=== PATIENT | male | born 1930 | race Caucasian/White ===

== ENCOUNTER 2019-01-10 04:17 | Inpatient (IN) | payer MEDICARE, OTHER ==
--- NOTE | 2019-01-10 04:42 | EDM.PDOC ---
ED HPI GENERAL MEDICAL PROBLEM - General Chief Complaint: Cardiovascular Problem Stated Complaint: A-FIB Time Seen by Provider: 01/10/19 04:41 Source of Information: Reports: Patient History Limitations: Reports: No Limitations - History of Present Illness INITIAL COMMENTS - FREE TEXT/NARRATIVE: pt woke up with a rapid heartbeat and thought he was probably back in atrial fib. He does have a history of atrial fib and is on elequist. Onset: Today, Sudden Duration: Hour(s): Location: Reports: Chest Associated Symptoms: Reports: No Other Symptoms - Related Data Allergies Allergy/AdvReac Type Severity Reaction Status Date / Time zolpidem [From Ambien] Allergy Hallucinati Verified 01/10/19 04:30 ons Home Meds: Home Meds Amiodarone HCl 100 mg PO DAILY 01/10/19 [History] Apixaban [Eliquis] 5 mg PO BID 01/10/19 [History] Calcium Carb/Mag Ox/Zinc Gluc [Sethboh-Nrnmvsutb-Rtsq] 1 each PO DAILY 01/10/19 [History] Docusate Sodium [Colace] 100 mg PO DAILY 01/10/19 [History] Dorzolamide HCl/Pf [Dorzolamide 2% Eye Drop] 1 drop EYEBOTH DAILY 01/10/19 [ History] Glucosam/Chond/Collagen/Hyalur [Glucosamine Chondroitin] 1 each PO DAILY [History] Latanoprost/Pf [Latanoprost 0.005% Eye Drop] 1 drop EYEBOTH DAILY 01/10/19 [ History] Multi-Enzyme 1 tab PO DAILY 01/10/19 [History] Multivitamin [Multi-Day Vitamins] 1 each PO DAILY 01/10/19 [History] [place]-3/DHA/Epa/Fish Oil [Murray-3 Fish Oil 1,000 MG Sfgl] 1 tab PO DAILY [History] Polyethylene Glycol 3350 [MiraLAX] 17 gm PO DAILY 01/10/19 [History] Pravastatin Sodium [Pravachol] 20 mg PO BEDTIME 01/10/19 [History] Tamsulosin HCl [Flomax] 0.4 mg PO DAILY 01/10/19 [History] Ubidecarenone [Coenzyme Q-10] 200 mg PO DAILY 01/10/19 [History] Verapamil HCl [Calan Sr] 180 mg PO DAILY 01/10/19 [History] Past Medical History HEENT History: Reports: Cataract, Glaucoma Cardiovascular History: Reports: Afib, Aneurysm, CAD, [place], Other (See Below) Other Cardiovascular History: 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 Respiratory History: Reports: Asthma Genitourinary History: Reports: BPH Musculoskeletal History: Reports: Arthritis, Fracture Other Musculoskeletal History: foot Psychiatric History: Reports: PTSD - Infectious Disease History Infectious Disease History: Reports: Chicken Pox, Mumps - Past Surgical History HEENT Surgical History: Reports: Cataract Surgery Cardiovascular Surgical History: Reports: Coronary Artery Bypass Other Cardiovascular Surgeries/Procedures: x 4 ED ROS GENERAL - Review of Systems Review Of Systems: See Below Constitutional: Reports: No Symptoms, Other (pt felt like his heart was pounding. ) HEENT: Reports: No Symptoms Respiratory: Reports: No Symptoms Cardiovascular: Reports: Palpitations, Other (p feels like his heart has slowed some since the racing started. ) Endocrine: Reports: No Symptoms GI/Abdominal: Reports: No Symptoms : Reports: No Symptoms Musculoskeletal: Reports: No Symptoms Skin: Reports: No Symptoms ED EXAM, GENERAL - Physical Exam Exam: See Below Free Text/Narrative:: pt is a very alert pt who feels like his heart is racing. He has a long history of atrial fib, He is elequist . He did not have chest pain or sob at the onset of the problem. Exam Limited By: No Limitations General Appearance: Alert, No Apparent Distress Ears: Normal TMs Nose: Normal Inspection Throat/Mouth: Normal Inspection Head: Atraumatic Neck: Normal Inspection Respiratory/Chest: No Respiratory Distress Cardiovascular: Regular Rate, Rhythm, Tachycardia, Systolic Murmur, Other (pt has a grade 2 systolic murmur. ) GI/Abdominal: Soft, Non-Tender (Male) Exam: Deferred Rectal (Males) Exam: Deferred Back Exam: Normal Inspection Extremities: Normal Inspection Neurological: Alert, Oriented Psychiatric: Normal Affect Course - Vital Signs Last Recorded V/S: Last Vital Signs Temp 36.3 C 01/10/19 04:24 Pulse 116 H 01/10/19 05:50 Resp 18 01/10/19 05:50 BP 173/110 H 01/10/19 05:50 Pulse Ox 94 L 01/10/19 05:50 - Orders/Labs/Meds Orders: Active Orders 24 hr Category Date Time Status EKG Documentation Completion [RC] ASDIRECTED Care 01/10/19 04:39 Active Diltiazem 125 mg Med 01/10/19 06:00 Active Sodium Chloride 0.9% [Normal Saline] 100 ml IV TITRATE Sodium Chloride 0.9% [Saline Flush] Med 01/10/19 05:09 Active 10 ml FLUSH ASDIRECTED PRN Saline Lock Insert [OM.PC] Routine Oth 01/10/19 05:09 Ordered EKG 12 Lead [EK] Routine Ther 01/10/19 04:39 Ordered Medication Orders Diltiazem HCl 125 mg/ Sodium (Chloride) 125 mls @ 5 mls/hr IV TITRATE SHARON; Protocol Sodium Chloride (Saline Flush) 10 ml FLUSH ASDIRECTED PRN PRN Reason: Keep Vein Open Last Admin: 01/10/19 05:32 Dose: 10 ml Labs: Laboratory Tests 01/10/19 01/10/19 01/10/19 Range/Units 04:45 04:45 04:45 WBC 5.5 (4.5-11.0) K/uL RBC 4.93 (4.30-5.90) M/uL Hgb 14.9 (12.0-15.0) g/dL Hct 45.1 (40.0-54.0) % MCV 92 (80-98) fL MCH 30 (27-31) pg MCHC 33 (32-36) % Plt Count 146 L (150-400) K/uL Neut % (Auto) 65 (36-66) % Lymph % (Auto) 23 L (24-44) % Greer % (Auto) 9 H (2-6) % Eos % (Auto) 3 (2-4) % Baso % (Auto) 0 (0-1) % Sodium 140 (140-148) mmol/L Potassium 3.8 (3.6-5.2) mmol/L Chloride 105 (100-108) mmol/L Carbon Dioxide 24 (21-32) mmol/L Anion Gap 11.0 (5.0-14.0) mmol/L BUN 24 H (7-18) mg/dL Creatinine 1.1 (0.8-1.3) mg/dL Est Cr Clr Drug Dosing 48.20 mL/min Estimated GFR (MDRD) > 60 (>60) Glucose 129 H (74-106) mg/dL Calcium 9.0 (8.5-10.1) mg/dL Magnesium 1.9 (1.8-2.4) mg/dL Total Bilirubin 0.3 (0.2-1.0) mg/dL AST 18 (15-37) U/L ALT 27 (12-78) U/L Alkaline Phosphatase 116 (46-116) U/L Troponin I (0.000-0.056) ng/mL Total Protein 7.3 (6.4-8.2) g/dL Albumin 3.3 L (3.4-5.0) g/dL Globulin 4.0 H (2.3-3.5) g/dL Albumin/Globulin Ratio 0.8 L (1.2-2.2) 01/10/19 Range/Units 04:45 WBC (4.5-11.0) K/uL RBC (4.30-5.90) M/uL Hgb (12.0-15.0) g/dL Hct (40.0-54.0) % MCV (80-98) fL MCH (27-31) pg MCHC (32-36) % Plt Count (150-400) K/uL Neut % (Auto) (36-66) % Lymph % (Auto) (24-44) % Greer % (Auto) (2-6) % Eos % (Auto) (2-4) % Baso % (Auto) (0-1) % Sodium (140-148) mmol/L Potassium (3.6-5.2) mmol/L Chloride (100-108) mmol/L Carbon Dioxide (21-32) mmol/L Anion Gap (5.0-14.0) mmol/L BUN (7-18) mg/dL Creatinine (0.8-1.3) mg/dL Est Cr Clr Drug Dosing mL/min Estimated GFR (MDRD) (>60) Glucose (74-106) mg/dL Calcium (8.5-10.1) mg/dL Magnesium (1.8-2.4) mg/dL Total Bilirubin (0.2-1.0) mg/dL AST (15-37) U/L ALT (12-78) U/L Alkaline Phosphatase (46-116) U/L Troponin I < 0.017 (0.000-0.056) ng/mL Total Protein (6.4-8.2) g/dL Albumin (3.4-5.0) g/dL Globulin (2.3-3.5) g/dL Albumin/Globulin Ratio (1.2-2.2) Meds: Medications Generic Name Dose Route Start Last Admin Trade Name Freq PRN Reason Stop Dose Admin Diltiazem HCl 125 mg/ Sodium 125 mls @ 5 mls/hr 01/10/19 06:00 Chloride IV TITRATE SHARON Protocol 5 MG/HR Sodium Chloride 10 ml 01/10/19 05:09 01/10/19 05:32 Saline Flush FLUSH 10 ml ASDIRECTED PRN Administration Keep Vein Open Discontinued Medications Generic Name Dose Route Start Last Admin Trade Name Freq PRN Reason Stop Dose Admin Adenosine 6 mg 01/10/19 05:36 01/10/19 05:43 Adenocard IVPUSH 01/10/19 05:37 6 mg NOW ONE Administration Diltiazem HCl 10 mg 01/10/19 05:48 Diltiazem IVPUSH 01/10/19 05:49 ONETIME ONE - Re-Assessments/Exams Free Text/Narrative Re-Assessment/Exam: 01/10/19 06:01 pt was given adenogard 6 mg and his heart slowed markedly. He appears to be in atrial flutter at that time. He was started on cardizem bolus and drip. He will be admitted to be followed. 01/10/19 06:19 [facility] was notified of his need for admission and felt he should be admitted locally. He is very stable at this point. He remains at a rate of 116. Departure - Departure Time of Disposition: 06:20 Disposition: Admitted As Inpatient 68 Condition: Fair Clinical Impression: Atrial flutter, History of atrial fibrillation, Valvular heart disease Referrals: PCP,None [Primary Care Provider] - Forms: ED Department Discharge Care Plan Goals: admit to Dr Khan. - My Orders Last 24 Hours: My Active Orders 01/10/19 04:39 EKG Documentation Completion [RC] ASDIRECTED EKG 12 Lead [EK] Routine 01/10/19 05:09 Sodium Chloride 0.9% [Saline Flush] 10 ml FLUSH ASDIRECTED PRN Saline Lock Insert [OM.PC] Routine 01/10/19 06:00 Diltiazem 125 mg Sodium Chloride 0.9% [Normal Saline] 100 ml IV TITRATE - Assessment/Plan Last 24 Hours: My Active Orders 01/10/19 04:39 EKG Documentation Completion [RC] ASDIRECTED EKG 12 Lead [EK] Routine 01/10/19 05:09 Sodium Chloride 0.9% [Saline Flush] 10 ml FLUSH ASDIRECTED PRN Saline Lock Insert [OM.PC] Routine 01/10/19 06:00 Diltiazem 125 mg Sodium Chloride 0.9% [Normal Saline] 100 ml IV TITRATE
[2019-01-10] MEDS ORDERED: Sodium Chloride 0.9% 10 ML Syringe FLUSH PRN (05:09)
[2019-01-10] MEDS ORDERED: Adenosine 6 MG/2 ML SDV IVPUSH ONE (05:36)
[2019-01-10] MEDS ORDERED: Diltiazem 25 MG/5 ML SDV IVPUSH ONE (05:48)
[2019-01-10] MEDS ORDERED: Acetaminophen 325 MG Tab PO PRN (06:35)
[2019-01-10] MEDS ORDERED: Promethazine 25 MG Tab PO PRN (06:35)
--- NOTE | 2019-01-10 06:35 | PCM.HP.2 ---
H&P History of Present Illness - General Date of Service: 01/10/19 Source of Information: Patient, Family History Limitations: Reports: No Limitations - History of Present Illness Initial Comments - Free Text/Narative: Patient is a 88 yo male who is here because he awoke this morning with a rapid heart rate. He says he used to have a dose of a beta trung to take if this happened but it was lost when he recently moved. He says he has no chest pain, SOB, NVD, swelling of legs, feet or hands, changes to vision, hearing, or any other adverse symptoms. He says he has A-fib and is on amiodarone for this, and used to be regularly on a beta trung but it was stopped 18 months ago d/t bradycardia. Onset of Symptoms: Reports: Today, Sudden Symptom Onset Date: 01/10/19 Symptom Onset Time: 04:00 Duration of Symptoms: Reports: Hour(s):, Improving Location: Reports: Chest Associated Symptoms: Reports: No Other Symptoms. Denies: Confusion, Chest Pain , Cough, Nausea/Vomiting, Shortness of Breath, Syncope, Weakness - Related Data Allergies/Adverse Reactions: Allergies Allergy/AdvReac Type Severity Reaction Status Date / Time zolpidem [From Ambien] Allergy Hallucinati Verified 01/10/19 04:30 ons Home Medications: Home Meds Amiodarone HCl 100 mg PO DAILY 01/10/19 [History] Apixaban [Eliquis] 5 mg PO BID 01/10/19 [History] Calcium Carb/Mag Ox/Zinc Gluc [Poabeti-Jxduygvtb-Znnw] 1 each PO DAILY 01/10/19 [History] Docusate Sodium [Colace] 100 mg PO DAILY 01/10/19 [History] Dorzolamide HCl/Pf [Dorzolamide 2% Eye Drop] 1 drop EYEBOTH DAILY 01/10/19 [ History] Glucosam/Chond/Collagen/Hyalur [Glucosamine Chondroitin] 1 each PO DAILY [History] Latanoprost/Pf [Latanoprost 0.005% Eye Drop] 1 drop EYEBOTH DAILY 01/10/19 [ History] Multi-Enzyme 1 tab PO DAILY 01/10/19 [History] Multivitamin [Multi-Day Vitamins] 1 each PO DAILY 01/10/19 [History] [place]-3/DHA/Epa/Fish Oil [[place]-3 Fish Oil 1,000 MG Sfgl] 1 tab PO DAILY [History] Polyethylene Glycol 3350 [MiraLAX] 17 gm PO DAILY 01/10/19 [History] Pravastatin Sodium [Pravachol] 20 mg PO BEDTIME 01/10/19 [History] Tamsulosin HCl [Flomax] 0.4 mg PO DAILY 01/10/19 [History] Ubidecarenone [Coenzyme Q-10] 200 mg PO DAILY 01/10/19 [History] Verapamil HCl [Calan Sr] 180 mg PO DAILY 01/10/19 [History] Past Medical History HEENT History: Reports: Cataract, Glaucoma Cardiovascular History: Reports: Afib, Aneurysm, CAD, [place], Other (See Below) Other Cardiovascular History: 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 Respiratory History: Reports: Asthma Genitourinary History: Reports: BPH Musculoskeletal History: Reports: Arthritis, Fracture Other Musculoskeletal History: foot Psychiatric History: Reports: PTSD - Infectious Disease History Infectious Disease History: Reports: Chicken Pox, Mumps - Past Surgical History HEENT Surgical History: Reports: Cataract Surgery Cardiovascular Surgical History: Reports: Coronary Artery Bypass Other Cardiovascular Surgeries/Procedures: x 4 Social & Family History - Family History Family Medical History: Unobtainable - Tobacco Use Smoking Status *Q: Never Smoker - Caffeine Use Caffeine Use: Reports: Coffee Caffeine Use Comment: jessica - Recreational Drug Use Recreational Drug Use: No H&P Review of Systems - Review of Systems: Review Of Systems: See Below General: Reports: No Symptoms. Denies: Fever, Chills, Weakness, Fatigue, Weight Loss HEENT: Reports: No Symptoms. Denies: Headaches Pulmonary: Reports: No Symptoms. Denies: Shortness of Breath, Wheezing Cardiovascular: Reports: Palpitations, Blood Pressure Problem Gastrointestinal: Reports: No Symptoms. Denies: Abdominal Pain, Diarrhea, Decreased Appetite, Nausea, Vomiting Genitourinary: Reports: No Symptoms. Denies: Frequency Musculoskeletal: Reports: No Symptoms. Denies: Back Pain, Joint Pain, Muscle Pain Skin: Reports: No Symptoms. Denies: Cyanosis, Pallor, Bruising Psychiatric: Reports: No Symptoms. Denies: Confusion, Depression Neurological: Reports: No Symptoms. Denies: Confusion, Dizziness, Headache, Numbness, Tingling Hematologic/Lymphatic: Reports: No Symptoms. Denies: Anemia, Easy Bleeding, Easy Bruising Immunologic: Reports: No Symptoms Exam - Exam Exam: See Below - Vital Signs Vital Signs: Last Vital Signs Temp 36.3 C 01/10/19 04:24 Pulse 116 H 01/10/19 05:50 Resp 18 01/10/19 05:50 BP 173/110 H 01/10/19 05:50 Pulse Ox 94 L 01/10/19 05:50 Weight: 77.4 kg - Exam General: Alert, Oriented, Cooperative HEENT: PERRLA, Conjunctiva Clear, EOMI Neck: Supple, Trachea Midline Lungs: Clear to Auscultation, Normal Respiratory Effort. No: Decreased Breath Sounds, Wheezing Cardiovascular: Regular Rhythm, Normal S1, Normal S2, Tachycardia GI/Abdominal Exam: Normal Bowel Sounds, Soft, Non-Tender, No Organomegaly, No Distention, No Mass (Male) Exam: Deferred Rectal (Males) Exam: Deferred Back Exam: Normal Inspection, Full Range of Motion. No: CVA Tenderness (R), CVA Tenderness (L) Extremities: Normal Range of Motion, Non-Tender, Normal Capillary Refill, Pedal Edema Skin: Warm, Dry, Intact Neurological: Cranial Nerves Intact, Reflexes Equal Bilateral Neuro Extensive - Mental Status: Alert, Oriented x3, Normal Mood/Affect, Normal Cognition, Memory Intact Neuro Extensive - Motor, Sensory, Reflexes: CN II-XII Intact, Normal Gait, Normal Reflexes Psychiatric: Alert, Normal Affect, Normal Mood - Patient Data Lab Results Last 24 hrs: Laboratory Results - last 24 hr 01/10/19 01/10/19 01/10/19 Range/Units 04:45 04:45 04:45 WBC 5.5 (4.5-11.0) K/uL RBC 4.93 (4.30-5.90) M/uL Hgb 14.9 (12.0-15.0) g/dL Hct 45.1 (40.0-54.0) % MCV 92 (80-98) fL MCH 30 (27-31) pg MCHC 33 (32-36) % Plt Count 146 L (150-400) K/uL Neut % (Auto) 65 (36-66) % Lymph % (Auto) 23 L (24-44) % Irwin % (Auto) 9 H (2-6) % Eos % (Auto) 3 (2-4) % Baso % (Auto) 0 (0-1) % Sodium 140 (140-148) mmol/L Potassium 3.8 (3.6-5.2) mmol/L Chloride 105 (100-108) mmol/L Carbon Dioxide 24 (21-32) mmol/L Anion Gap 11.0 (5.0-14.0) mmol/L BUN 24 H (7-18) mg/dL Creatinine 1.1 (0.8-1.3) mg/dL Est Cr Clr Drug Dosing 48.20 mL/min Estimated GFR (MDRD) > 60 (>60) Glucose 129 H (74-106) mg/dL Calcium 9.0 (8.5-10.1) mg/dL Magnesium 1.9 (1.8-2.4) mg/dL Total Bilirubin 0.3 (0.2-1.0) mg/dL AST 18 (15-37) U/L ALT 27 (12-78) U/L Alkaline Phosphatase 116 (46-116) U/L Troponin I (0.000-0.056) ng/mL Total Protein 7.3 (6.4-8.2) g/dL Albumin 3.3 L (3.4-5.0) g/dL Globulin 4.0 H (2.3-3.5) g/dL Albumin/Globulin Ratio 0.8 L (1.2-2.2) 01/10/19 Range/Units 04:45 WBC (4.5-11.0) K/uL RBC (4.30-5.90) M/uL Hgb (12.0-15.0) g/dL Hct (40.0-54.0) % MCV (80-98) fL MCH (27-31) pg MCHC (32-36) % Plt Count (150-400) K/uL Neut % (Auto) (36-66) % Lymph % (Auto) (24-44) % Irwin % (Auto) (2-6) % Eos % (Auto) (2-4) % Baso % (Auto) (0-1) % Sodium (140-148) mmol/L Potassium (3.6-5.2) mmol/L Chloride (100-108) mmol/L Carbon Dioxide (21-32) mmol/L Anion Gap (5.0-14.0) mmol/L BUN (7-18) mg/dL Creatinine (0.8-1.3) mg/dL Est Cr Clr Drug Dosing mL/min Estimated GFR (MDRD) (>60) Glucose (74-106) mg/dL Calcium (8.5-10.1) mg/dL Magnesium (1.8-2.4) mg/dL Total Bilirubin (0.2-1.0) mg/dL AST (15-37) U/L ALT (12-78) U/L Alkaline Phosphatase (46-116) U/L Troponin I < 0.017 (0.000-0.056) ng/mL Total Protein (6.4-8.2) g/dL Albumin (3.4-5.0) g/dL Globulin (2.3-3.5) g/dL Albumin/Globulin Ratio (1.2-2.2) Result Diagrams: 01/10/19 04:45 01/10/19 04:45 - Problem List (1) Atrial flutter SNOMED Code(s): 0825495 ICD Code: I48.92 - UNSPECIFIED ATRIAL FLUTTER Status: Acute Priority: High Current Visit: Yes Onset Date: ~01/10/19 Problem Details: Will continue cardizem drip until patient converts, this may require additional medications to convert patient Qualifiers: Atrial flutter type: typical Qualified Code(s): I48.3 - Typical atrial flutter (2) Hypertension SNOMED Code(s): 08712150 ICD Code: I10 - ESSENTIAL (PRIMARY) HYPERTENSION Status: Acute Priority: High Current Visit: Yes Onset Date: ~01/10/19 Problem Details: Patient does not have history of HTN, but vitals in ER show 170/106, blood pressure will likely resolve with treatment for Afib Qualifiers: Hypertension type: unspecified secondary hypertension Qualified Code(s): I15.9 - Secondary hypertension, unspecified; I15 - Secondary hypertension (3) BPH (benign prostatic hyperplasia) SNOMED Code(s): 788677298 ICD Code: N40.0 - BENIGN PROSTATIC HYPERPLASIA WITHOUT LOWER URINRY TRACT SYMP Status: Acute Priority: Low Current Visit: Yes Onset Date: Unknown Problem Details: tamsulosin Qualifiers: Lower urinary tract symptom presence: symptoms absent Qualified Code(s): N40.0 - Benign prostatic hyperplasia without lower urinary tract symptoms Problem List Initiated/Reviewed/Updated: Yes Orders Last 24hrs: Resuscitation Status 01/10/19 06:35 Resuscitation Status Routine Resuscitation Status: Full Code Abbreviations used in this policy: *Cardiopulmonary Resuscitation (CPR) *Do Not Resuscitate (DNR) *Do Not Intubate (DNI) Code status categories recognized at [facility] 1. Full Code a. If a patient experiences cardiac or respiratory arrest, all resuscitation efforts (including CPR, defibrillation, and airway management) will be performed. b. Patients without a specific code status order other than Full Code will be assumed to be Full Code Status. Intubation CPR Defibrillation YES YES YES 2. DNR a. If there are changes in the patients' vital signs and condition, including respiratory arrest, treatment with medications and intubation, if indicated will be performed. b. If a patient experiences cardiac arrest, resuscitation efforts (CPR and Defibrillation) will not be performed. Intubation CPR Defibrillation YES NO NO 3. DNR/DNI a. If there are changes in the patient's vital signs and condition, including respiratory arrest, treatment with medications and noninvasive airway management/positive pressure ventilation, if indicated will be performed b. If a patient experiences a cardiac arrest, resuscitation efforts ( including CPR, defibrillation and intubation) will not be performed. Intubation CPR Defibrillation NO NO NO 4. DNR/DNI/Comfort Measures a. All medical and nursing interventions will be for the sole purpose of providing pain/symptom management for the patient. b. If a patient experiences a cardiac or respiratory arrest, resuscitation efforts (including CPR, defibrillation and intubation) will not be performed. Intubation CPR Defibrillation No NO NO ACTIVE MED ORDERS Generic Name Dose Route Start Last Admin Trade Name Freq PRN Reason Stop Dose Admin Acetaminophen 650 mg 01/10/19 06:35 Tylenol PO Q4H PRN Pain (Mild 1-3)/fever Diltiazem HCl 125 mg/ Sodium 125 mls @ 5 mls/hr 01/10/19 06:00 01/10/19 06:45 Chloride IV 5 mg/hr TITRATE SHARON 5 mls/hr Administration Protocol 5 MG/HR Promethazine HCl 25 mg 01/10/19 06:35 Phenergan PO Q6H PRN Nausea able to take PO Sodium Chloride 10 ml 01/10/19 05:09 01/10/19 05:32 Saline Flush FLUSH 10 ml ASDIRECTED PRN Administration Keep Vein Open ACTIVE NON-MED ORDERS/Care 01/10/19 04:39 EKG Documentation Completion [RC] ASDIRECTED 01/10/19 06:52 Oxygen Therapy [RC] PRN Maintain SpO2% greater than: 92 Oxygen Therapy Mode, Primary: Nasal Cannula Oxygen Flow Rate (L/min): 2 Oxygen Therapy Mode, Secondary: Nasal Cannula Flow Rate (L/min), Secondary: 4 VTE/DVT Education [RC] Per Unit Routine Vital Signs [RC] Q4H 01/10/19 06:53 Cardiac Monitoring [RC] .As Directed ACTIVE NON-MED ORDERS/Orderable Interventions Cardiac Monitoring/Telemetry Start: 01/10/19 06: 53 Text: Status: Active Freq: .As Directed Protocol: EKG Documentation of Completion Start: 01/10/19 04: 39 Freq: ASDIRECTED Status: Active Protocol: Document 01/10/19 05:07 LP (Rec: 01/10/19 05:08 LP [email or web address]) Education: VTE/DVT Topics Start: 01/10/19 06: 52 Freq: Per Unit Routine Status: Active Protocol: Oxygen Therapy Start: 01/10/19 06: 52 Freq: PRN Status: Active Protocol: Vital Signs Start: 01/10/19 06: 52 Text: Click to edit a change in frequency and times. Status: Active Freq: Q4H Protocol: VS.TEMP ACTIVE NON-MED ORDERS/LAB 01/11/19 06:35 CBC W/O DIFF,HEMOGRAM [HEME] Routine Comment: Specimen: Send someone from the department to collect COMPREHENSIVE METABOLIC PN,CMP [CHEM] Routine Comment: Specimen: Send someone from the department to collect ACTIVE ORDERS/MEDS 01/10/19 05:09 Sodium Chloride 0.9% [Saline Flush] 10 ml FLUSH ASDIRECTED PRN 01/10/19 06:00 Diltiazem 125 mg Sodium Chloride 0.9% [Normal Saline] 100 ml IV TITRATE 01/10/19 06:35 Acetaminophen [Tylenol] 650 mg PO Q4H PRN Promethazine [Phenergan] 25 mg PO Q6H PRN ACTIVE NON-MED ORDERS/Therapies 01/10/19 04:39 EKG 12 Lead [EK] Routine Is Patient : Reason For Exam: near syncope ACTIVE NON-MED ORDERS/Transfer 01/10/19 06:55 Patient Status Manage Transfer [TRANSFER] Routine Patient Status: Admit to Inpatient Admission Diagnosis/Problem: Atrial flutter with rapid ventricular response Reason for Admit: a-flutter with RVR, on drip Nurse Unit Type: Critical Care Adult Admitting Physician: Trudy Khan Attending Physician: Sarthak Lambert Medicare 96 Hour Certification Statement: This Patient is Admitted for Inpatient Services and is Medically Appropriate and Meets Medical Necessity for Inpatient Admission. I Reasonably Expect the Patient will Require Inpatient Services that Span a Period of Over 2 Midnights. My Rationale for Medically Necessary Inpatient Care will be Found in the Admission History & Physical and Progress Notes. I Reasonably Expect the Patient to be Discharged or Transferred within 96 Hours After Admission to this Critical Access Hospital. Provider Acknowledgement/Certification: Trudy Khan ACTIVE NON-MED ORDERS/Other 01/10/19 05:09 Saline Lock Insert [OM.PC] Routine Comment: 01/10/19 06:35 Anticoagulation Contraindications VTE [AST] Per Unit Routine Physician Instructions: patient on eliquis VTE Anticoagulation Contraindications: Med/TX Not Indicated/Need 01/10/19 06:52 Patient Status [ADT] Routine Patient Status: Admit to Inpatient Admission Diagnosis/Problem: Atrial flutter with rapid ventricular response Reason for Admit: a-flutter with RVR and drip Nurse Unit Type: Critical Care Adult Admitting Physician: Trudy Khan Attending Physician: Sarthak Lambert Medicare 96 Hour Certification Statement: This Patient is Admitted for Inpatient Services and is Medically Appropriate and Meets Medical Necessity for Inpatient Admission. I Reasonably Expect the Patient will Require Inpatient Services that Span a Period of Over 2 Midnights. My Rationale for Medically Necessary Inpatient Care will be Found in the Admission History & Physical and Progress Notes. I Reasonably Expect the Patient to be Discharged or Transferred within 96 Hours After Admission to this Critical Access Hospital. Provider Acknowledgement/Certification: Trudy Khan 01/10/19 06:53 Sequential Compression Device [OM.PC] Per Unit Routine Comment: - Mortality Measure Prognosis:: Good
[2019-01-10] MEDS: Diltiazem 125 MG in Sodium Chloride 0.9% 100 ML IV SCH ×2 (06:45→15:28)
[2019-01-10] MEDS ORDERED: Apixaban 5 MG Tab PO SCH (09:02)
--- NOTE | 2019-01-10 10:51 | PCM.PN ---
- General Info Date of Service: 01/10/19 Subjective Update: Mr. Thomson is an 88-year-old gentleman who was admitted early this morning through the emergency department with atrial flutter and rapid ventricular response. He does have a previous history of A. fib flutter, with previous hospitalization about a year and a half ago. He has been treated with amiodarone for rhythm control and verapamil for rate control. He also has been on long-term oral anticoagulation with Eliquis. Dose of amiodarone was decreased from 200 mg a day to 100 mg a day 2-3 months ago. He awoke early this morning with rapid heart rate and when it did not improve spontaneously he presented to the emergency department for further evaluation. He has been treated with IV diltiazem, rate remains elevated in the range of 120 bpm. Functional Status: Reports: Tolerating Diet, Urinating - Review of Systems General: Reports: Weakness. Denies: Fever, Chills Pulmonary: Reports: No Symptoms Cardiovascular: Reports: Palpitations. Denies: Chest Pain, Dyspnea on Exertion , Orthopnea, PND, Edema, Lightheadedness Gastrointestinal: Reports: No Symptoms Genitourinary: Reports: No Symptoms - Patient Data Vitals - Most Recent: Last Vital Signs Temp 97.3 F 01/10/19 04:24 Pulse 123 H 01/10/19 08:46 Resp 14 01/10/19 08:46 BP 130/78 01/10/19 08:46 Pulse Ox 96 01/10/19 08:46 Weight - Most Recent: 163 lb 14.4 oz I&O - Last 24 Hours: Intake & Output 01/09/19 01/10/19 01/10/19 22:59 06:59 14:59 Output Total 350 Balance -350 Lab Results Last 24 Hours: Laboratory Results - last 24 hr 01/10/19 01/10/19 01/10/19 Range/Units 04:45 04:45 04:45 WBC 5.5 (4.5-11.0) K/uL RBC 4.93 (4.30-5.90) M/uL Hgb 14.9 (12.0-15.0) g/dL Hct 45.1 (40.0-54.0) % MCV 92 (80-98) fL MCH 30 (27-31) pg MCHC 33 (32-36) % Plt Count 146 L (150-400) K/uL Neut % (Auto) 65 (36-66) % Lymph % (Auto) 23 L (24-44) % [place] % (Auto) 9 H (2-6) % Eos % (Auto) 3 (2-4) % Baso % (Auto) 0 (0-1) % Sodium 140 (140-148) mmol/L Potassium 3.8 (3.6-5.2) mmol/L Chloride 105 (100-108) mmol/L Carbon Dioxide 24 (21-32) mmol/L Anion Gap 11.0 (5.0-14.0) mmol/L BUN 24 H (7-18) mg/dL Creatinine 1.1 (0.8-1.3) mg/dL Est Cr Clr Drug Dosing 48.20 mL/min Estimated GFR (MDRD) > 60 (>60) Glucose 129 H (74-106) mg/dL Calcium 9.0 (8.5-10.1) mg/dL Magnesium 1.9 (1.8-2.4) mg/dL Total Bilirubin 0.3 (0.2-1.0) mg/dL AST 18 (15-37) U/L ALT 27 (12-78) U/L Alkaline Phosphatase 116 (46-116) U/L Troponin I (0.000-0.056) ng/mL Total Protein 7.3 (6.4-8.2) g/dL Albumin 3.3 L (3.4-5.0) g/dL Globulin 4.0 H (2.3-3.5) g/dL Albumin/Globulin Ratio 0.8 L (1.2-2.2) 01/10/19 Range/Units 04:45 WBC (4.5-11.0) K/uL RBC (4.30-5.90) M/uL Hgb (12.0-15.0) g/dL Hct (40.0-54.0) % MCV (80-98) fL MCH (27-31) pg MCHC (32-36) % Plt Count (150-400) K/uL Neut % (Auto) (36-66) % Lymph % (Auto) (24-44) % [place] % (Auto) (2-6) % Eos % (Auto) (2-4) % Baso % (Auto) (0-1) % Sodium (140-148) mmol/L Potassium (3.6-5.2) mmol/L Chloride (100-108) mmol/L Carbon Dioxide (21-32) mmol/L Anion Gap (5.0-14.0) mmol/L BUN (7-18) mg/dL Creatinine (0.8-1.3) mg/dL Est Cr Clr Drug Dosing mL/min Estimated GFR (MDRD) (>60) Glucose (74-106) mg/dL Calcium (8.5-10.1) mg/dL Magnesium (1.8-2.4) mg/dL Total Bilirubin (0.2-1.0) mg/dL AST (15-37) U/L ALT (12-78) U/L Alkaline Phosphatase (46-116) U/L Troponin I < 0.017 (0.000-0.056) ng/mL Total Protein (6.4-8.2) g/dL Albumin (3.4-5.0) g/dL Globulin (2.3-3.5) g/dL Albumin/Globulin Ratio (1.2-2.2) Med Orders - Current: Current Medications Acetaminophen (Tylenol) 650 mg PO Q4H PRN PRN Reason: Pain (Mild 1-3)/fever Apixaban (Eliquis) 5 mg PO DAILY SHARON Diltiazem HCl 125 mg/ Sodium (Chloride) 125 mls @ 5 mls/hr IV TITRATE SHARON; Protocol Last Titration: 01/10/19 09:06 Dose: 15 mg/hr, 15 mls/hr Promethazine HCl (Phenergan) 25 mg PO Q6H PRN PRN Reason: Nausea able to take PO Sodium Chloride (Saline Flush) 10 ml FLUSH ASDIRECTED PRN PRN Reason: Keep Vein Open Last Admin: 01/10/19 05:32 Dose: 10 ml Tamsulosin HCl (Flomax) 0.4 mg PO BEDTIME SHARON Discontinued Medications Adenosine (Adenocard) 6 mg IVPUSH NOW ONE Stop: 01/10/19 05:37 Last Admin: 01/10/19 05:43 Dose: 6 mg Diltiazem HCl (Diltiazem) 10 mg IVPUSH ONETIME ONE Stop: 01/10/19 05:49 Last Admin: 01/10/19 06:39 Dose: 10 mg - Exam Quality Assessment: DVT Prophylaxis General: Alert, Oriented, Cooperative, Mild Distress Lungs: Clear to Auscultation, Normal Respiratory Effort Cardiovascular: Regular Rhythm, No Murmurs, Tachycardia GI/Abdominal Exam: Soft, Non-Tender, No Organomegaly, No Distention Extremities: Non-Tender, No Pedal Edema - Problem List Review Problem List Initiated/Reviewed/Updated: Yes - My Orders Last 24 Hours: My Active Orders 01/10/19 10:45 Amiodarone HCl [Amiodarone HCl] 400 mg PO DAILY Apixaban [Eliquis] 5 mg PO BID 01/10/19 11:00 Docusate Sodium [Colace] 100 mg PO DAILY Dorzolamide HCl/Pf [Dorzolamide 2% Eye Drop] 1 drop EYEBOTH DAILY Latanoprost/Pf [Latanoprost 0.005% Eye Drop] 1 drop EYEBOTH DAILY Tamsulosin [Flomax] 0.4 mg PO DAILY Verapamil [Calan SR] 180 mg PO DAILY 01/10/19 21:00 Pravastatin [Pravachol] 20 mg PO BEDTIME - Plan Plan:: ASSESSMENT AND PLAN ATRIAL FLUTTER-rate remains in the range of 120 with 2 to 1 conduction. -Increase amiodarone to 400 mg daily for the next 10 days, then 200 mg daily thereafter. -Continue IV diltiazem -Continue oral verapamil -Consider cardioversion in a.m. MAINTENANCE ISSUES -DVT prophylaxis; current therapy with Eliquis should provide adequate DVT prophylaxis -GI prophylaxis; not indicated -Pro catheter; not indicated -Nutrition; nothing by mouth after midnight -Nicotine dependence; not required CODE STATUS-FULL CODE ADMISSION STATUS-patient will be admitted to inpatient status, expect at least a 2 night hospital stay for evaluation and management of problems as outlined above. At the time of this admission I do not reasonably expected evaluation and management of this problem will require more than a 96 hour hospital stay. DISPOSITION-anticipate discharge to home after the hospital stay. PRIMARY CARE PROVIDER-patient receives primary care through the [facility]
[2019-01-10] MEDS ORDERED: Tamsulosin 0.4 MG Cap.ER PO SCH ×2 (11:00→21:00)
[2019-01-10] MEDS ORDERED: Dorzolamide 2% Ophth Soln 10 ML Bottle EYEBOTH SCH (11:00)
[2019-01-10] MEDS: Apixaban 5 MG Tab PO SCH ×2 (11:00→21:06)
[2019-01-10] MEDS: Amiodarone 200 MG Tab PO SCH (11:13)
[2019-01-10] MEDS: Verapamil 180 MG Tab.ER PO SCH (11:14)
[2019-01-10] MEDS: Docusate Sodium 100 MG Cap PO SCH (11:14)
[2019-01-10] MEDS ORDERED: Latanoprost 0.005% Ophth Soln 2.5 ML Bottle EYEBOTH SCH ×2 (17:00→21:00)
[2019-01-10] MEDS: Dorzolamide 2% Ophth Soln 10 ML Bottle EYEBOTH SCH (19:44)
[2019-01-10] MEDS ORDERED: Pravastatin 20 MG Tab PO SCH (21:00)
[2019-01-11] MEDS: Diltiazem 125 MG in Sodium Chloride 0.9% 100 ML IV SCH (00:39)
[2019-01-11] MEDS ORDERED: Propofol 200 MG/20 ML SDV ONE (11:01)
--- NOTE | 2019-01-11 11:07 | PCM.OPNOTE ---
- General Post-Op/Procedure Note Date of Surgery/Procedure: 01/11/19 Operative Procedure(s): Elective electrical cardioversion Pre Op Diagnosis: Atrial Flutter Post-Op Diagnosis: Electrical cardioversion to sinus rhythm Anesthesia Technique: Moderate Sedation Primary Surgeon: Sarthak Lambert Anesthesia Provider: Sarthak Matta Condition: Good Free Text/Narrative:: Intake & Output 01/10/19 01/11/19 01/11/19 22:59 06:59 14:59 Intake Total 477 416 Output Total 250 950 Balance 227 -534 Mr. Thomson is an 88-year-old gentleman who was admitted through the emergency department with atrial flutter and 2-1 conduction. He was managed with IV diltiazem but remained in atrial flutter. Discussion was held with the patient and family concerning options for ongoing management. Including further medical management versus proceeding with electrical cardioversion. Risks and goals of each option were thoroughly reviewed and the patient elected to proceed with elective electrical cardioversion. He had been held nothing by mouth since midnight. IV sedation was provided by anesthesia, after adequate sedation was achieved patient was cardioverted to sinus rhythm using 200 J of energy delivered in a synchronized fashion. After cardioversion patient remained stable and was recovered from sedation.
[2019-01-11] MEDS: Dorzolamide 2% Ophth Soln 10 ML Bottle EYEBOTH SCH (11:14)
[2019-01-11] MEDS: Apixaban 5 MG Tab PO SCH (11:15)
[2019-01-11] MEDS: Docusate Sodium 100 MG Cap PO SCH (11:15)
[2019-01-11] MEDS: Verapamil 180 MG Tab.ER PO SCH (11:15)
[2019-01-11] MEDS: Amiodarone 200 MG Tab PO SCH (11:15)
[2019-01-11] MEDS ORDERED: Tamsulosin 0.4 MG Cap.ER PO SCH (14:00)
--- NOTE | 2019-01-11 17:10 | PCM.DCSUM1 ---
Discharge Summary - Hospital Course Brief History: Mr. Thomson is an 89-year-old gentleman who was admitted through the emergency department with rapid heart rate secondary to atrial flutter. - Discharge Data Discharge Date: 01/11/19 Discharge Disposition: Home, Self-Care 01 Condition: Good - Referral to Home Health Primary Care Physician: PCP None - Discharge Diagnosis/Problem(s) (1) Encounter for cardioversion procedure SNOMED Code(s): 259290673, 421214417, 945738112 ICD Code: Z01.89 - ENCOUNTER FOR OTHER SPECIFIED SPECIAL EXAMINATIONS Status: Acute Current Visit: Yes (2) Atrial flutter SNOMED Code(s): 6215890 ICD Code: I48.92 - UNSPECIFIED ATRIAL FLUTTER Status: Acute Priority: High Current Visit: Yes Onset Date: ~01/10/19 Problem Details: Will continue cardizem drip until patient converts, this may require additional medications to convert patient Qualifiers: Atrial flutter type: typical Qualified Code(s): I48.3 - Typical atrial flutter - Patient Summary/Data Operative Procedure(s) Performed: Elective electrical cardioversion Hospital Course: Mr. Thomson is an 88-year-old gentleman who was admitted through the emergency department with rapid heart rate secondary to atrial flutter. Symptoms began early on the morning of admission and when they did not resolve he presented to the emergency department for further evaluation. Initial EKG and interventional radiologist showed narrow complex tachycardia. He was given 2 doses of the Adenocard that did slow the rate but did not convert it. Underlying rhythm appeared to be atrial flutter. He says he has no chest pain, SOB, NVD, swelling of legs, feet or hands, changes to vision, hearing, or any other adverse symptoms. He says he has A-fib and is on amiodarone for this, and used to be regularly on a beta trung but it was stopped 18 months ago d/t bradycardia. His dose of amiodarone had been decreased from 200 mg a day to 100 mg day 2-3 months prior to this admission. On admission he was treated with IV diltiazem which unfortunately did not result in good rate control. He was monitored 24 hours but remained in atrial flutter with a heart rate in the range of 120. Options for ongoing management were reviewed with the patient and his including medical management for rate control versus electrical cardioversion. After discussion concerning the risks and benefits of each approach patient did decide to proceed with elective electrical cardioversion. IV sedation was provided by the anesthesia service and he was converted to sinus rhythm using 200 J of energy delivered in a synchronized fashion. He was monitored for several hours following the cardioversion and remained in sinus rhythm. He will be discharged home with increased dose of amiodarone, 400 mg daily for 7 days then 200 mg daily thereafter. Follow-up appointment will be scheduled with primary care provider as well as cardiology. He has had recent symptoms of paresthesias, with symptoms into his extremities as well as his head. MRI of the brain with contrast will be ordered for January 14. Follow-up with primary care provider will be scheduled for January 17. - Patient Instructions Diet: Low Sodium Activity: As Tolerated Other/Special Instructions: Schedule follow-up appointment with primary care provider for January 17. Please schedule MRI of the brain for January 14. Please schedule follow-up appointment with cardiology as soon as possible. - Discharge Plan *PRESCRIPTION DRUG MONITORING PROGRAM REVIEWED*: Not Applicable *COPY OF PRESCRIPTION DRUG MONITORING REPORT IN PATIENT [place]: Not Applicable Prescriptions/Med Rec: Amiodarone [Cordarone] 400 mg PO DAILY #30 tablet Home Medications: Home Meds Apixaban [Eliquis] 5 mg PO BID 01/10/19 [History] Calcium Carb/Mag Ox/Zinc Gluc [Xufnzaf-Pdmlmdrrp-Xdan] 1 each PO DAILY 01/10/19 [History] Docusate Sodium [Colace] 100 mg PO DAILY 01/10/19 [History] Dorzolamide HCl/Pf [Dorzolamide 2% Eye Drop] 1 drop EYEBOTH BID 01/10/19 [ History] Glucosam/Chond/Collagen/Hyalur [Glucosamine Chondroitin] 1 each PO DAILY [History] Latanoprost/Pf [Latanoprost 0.005% Eye Drop] 1 drop EYEBOTH DAILY 01/10/19 [ History] Multi-Enzyme 1 tab PO DAILY 01/10/19 [History] Multivitamin [Multi-Day Vitamins] 1 each PO DAILY 01/10/19 [History] [place]-3/DHA/Epa/Fish Oil [[place]-3 Fish Oil 1,000 MG Sfgl] 1 tab PO DAILY [History] Polyethylene Glycol 3350 [MiraLAX] 17 gm PO DAILY 01/10/19 [History] Pravastatin Sodium [Pravachol] 20 mg PO BEDTIME 01/10/19 [History] Tamsulosin HCl [Flomax] 0.4 mg PO DAILY 01/10/19 [History] Ubidecarenone [Coenzyme Q-10] 200 mg PO DAILY 01/10/19 [History] Verapamil HCl [Calan Sr] 180 mg PO DAILY 01/10/19 [History] Amiodarone [Cordarone] 400 mg PO DAILY #30 tablet 01/11/19 [Rx] Referrals: Trudy Khan DO [Physician] - 01/17/19 1:30 pm (Please arrive 15 minutes early to register for your appointment. ) - Discharge Summary/Plan Comment DC Time >30 min.: No - Patient Data Vitals - Most Recent: Last Vital Signs Temp 95.6 F 01/11/19 07:00 Pulse 61 01/11/19 15:00 Resp 18 01/11/19 15:00 BP 135/63 01/11/19 15:00 Pulse Ox 95 01/11/19 15:00 Weight - Most Recent: 163 lb 14.4 oz I&O - Last 24 hours: Intake & Output 01/11/19 01/11/19 01/11/19 06:59 14:59 22:59 Intake Total 416 Output Total 950 Balance -534 Lab Results - Last 24 hrs: Laboratory Results - last 24 hr 01/11/19 01/11/19 01/11/19 Range/Units 04:00 04:00 04:00 WBC 6.3 (4.5-11.0) K/uL RBC 5.08 (4.30-5.90) M/uL Hgb 15.3 H (12.0-15.0) g/dL Hct 46.6 (40.0-54.0) % MCV 92 (80-98) fL MCH 30 (27-31) pg MCHC 33 (32-36) % Plt Count 155 (150-400) K/uL Sodium 141 (140-148) mmol/L Potassium 3.8 (3.6-5.2) mmol/L Chloride 108 (100-108) mmol/L Carbon Dioxide 23 (21-32) mmol/L Anion Gap 9.6 (5.0-14.0) mmol/L BUN 17 (7-18) mg/dL Creatinine 1.0 (0.8-1.3) mg/dL Est Cr Clr Drug Dosing 53.03 mL/min Estimated GFR (MDRD) > 60 (>60) Glucose 129 H (74-106) mg/dL Calcium 8.6 (8.5-10.1) mg/dL Magnesium 1.8 (1.8-2.4) mg/dL Total Bilirubin 0.4 (0.2-1.0) mg/dL AST 15 (15-37) U/L ALT 26 (12-78) U/L Alkaline Phosphatase 92 (46-116) U/L Total Protein 6.9 (6.4-8.2) g/dL Albumin 3.0 L (3.4-5.0) g/dL Globulin 3.9 H (2.3-3.5) g/dL Albumin/Globulin Ratio 0.8 L (1.2-2.2) Med Orders - Current: Current Medications Acetaminophen (Tylenol) 650 mg PO Q4H PRN PRN Reason: Pain (Mild 1-3)/fever Amiodarone HCl (Cordarone) 400 mg PO DAILY [facility] Last Admin: 01/11/19 11:15 Dose: 400 mg Apixaban (Eliquis) 5 mg PO BID [facility] Last Admin: 01/11/19 11:15 Dose: 5 mg Docusate Sodium (Colace) 100 mg PO DAILY [facility] Last Admin: 01/11/19 11:15 Dose: 100 mg Dorzolamide HCl (Trusopt 2% Ophth Soln) 0 ml EYEBOTH BID@0800,2000 [facility] Last Admin: 01/11/19 11:14 Dose: 1 drop Diltiazem HCl 125 mg/ Sodium (Chloride) 125 mls @ 5 mls/hr IV TITRATE [facility]; Protocol Last Admin: 01/11/19 00:39 Dose: 15 mg/hr, 15 mls/hr Latanoprost (Xalatan 0.005% Ophth Soln) 0 ml EYEBOTH BEDTIME [facility] Last Admin: 01/10/19 21:07 Dose: 1 drop Pravastatin Sodium (Pravachol) 20 mg PO BEDTIME [facility] Last Admin: 01/10/19 21:07 Dose: 20 mg Promethazine HCl (Phenergan) 25 mg PO Q6H PRN PRN Reason: Nausea able to take PO Sodium Chloride (Saline Flush) 10 ml FLUSH ASDIRECTED PRN PRN Reason: Keep Vein Open Last Admin: 01/10/19 05:32 Dose: 10 ml Tamsulosin HCl (Flomax) 0.4 mg PO DAILY [facility] Last Admin: 01/11/19 13:52 Dose: 0.4 mg Verapamil HCl (Calan Sr) 180 mg PO DAILY [facility] Last Admin: 01/11/19 11:15 Dose: 180 mg Discontinued Medications Adenosine (Adenocard) 6 mg IVPUSH NOW ONE Stop: 01/10/19 05:37 Last Admin: 01/10/19 05:43 Dose: 6 mg Diltiazem HCl (Diltiazem) 10 mg IVPUSH ONETIME ONE Stop: 01/10/19 05:49 Last Admin: 01/10/19 06:39 Dose: 10 mg Dorzolamide HCl (Trusopt 2% Ophth Soln) 0 ml EYEBOTH DAILY [facility] Last Admin: 01/10/19 12:46 Dose: 1 drop Propofol (Diprivan 20 Ml) Confirm Administered Dose 200 mg .ROUTE .STK-MED ONE Stop: 01/11/19 11:02 Tamsulosin HCl (Flomax) 0.4 mg PO BEDTIME [facility] Last Admin: 01/10/19 21:07 Dose: Not Given Tamsulosin HCl (Flomax) 0.4 mg PO DAILY [facility] Last Admin: 01/10/19 11:14 Dose: 0.4 mg - Exam General: Reports: Alert, Oriented, Cooperative, No Acute Distress Lungs: Reports: Clear to Auscultation, Normal Respiratory Effort Cardiovascular: Reports: Regular Rate, Regular Rhythm, No Murmurs GI/Abdominal Exam: Soft, Non-Tender, No Organomegaly, No Distention Extremities: Non-Tender, No Pedal Edema *Q Meaningful Use (DIS) - VTE *Q VTE Anticoagulation Contraindications: Med/TX Not Indicated/Need
== END 2019-01-11 18:10 | disposition home or self-care (01) | DRG 310 ==
LOC: JP.ED 04:17 → JP.ICU 06:55
PROVIDERS: ADMIT Family Medicine; ATTEND Family Medicine
PROC: 5A2204Z Restoration of Cardiac Rhythm, Single (ICD-10-PCS; principal; 2019-01-11)
DX: I48.92 Unspecified atrial flutter (principal); Z79.01 Long term (current) use of anticoagulants; I48.3 Typical atrial flutter; H40.9 Unspecified glaucoma; I48.91 Unspecified atrial fibrillation; I25.10 Atherosclerotic heart disease of native coronary artery without angina pectoris; I08.3 Combined rheumatic disorders of mitral, aortic and tricuspid valves; M19.90 Unspecified osteoarthritis, unspecified site; J45.909 Unspecified asthma, uncomplicated; I15.9 Secondary hypertension, unspecified; F43.10 Post-traumatic stress disorder, unspecified; N40.0 Benign prostatic hyperplasia without lower urinary tract symptoms; I25.2 Old myocardial infarction; I08.1 Rheumatic disorders of both mitral and tricuspid valves; Z98.41 Cataract extraction status, right eye; Z79.899 Other long term (current) drug therapy; Z88.8 Allergy status to other drugs, medicaments and biological substances; Z98.42 Cataract extraction status, left eye; Z95.1 Presence of aortocoronary bypass graft
CPT/HCPCS: 36415; 80053; 83735; 84484; 85025; 93005; J0153; J3490 ×2; J7030; 84443; 85027; 96374; 96375; 99285-25; A9270-GY; J2704